=== PATIENT | male | born 1980 | race Caucasian/White ===

== ENCOUNTER 2018-01-05 19:30 | Emergency (ER) | payer MEDICAID ==
[2018-01-05 20:19] LABS: ABS Basophils 0 10^3/ul (0-0.2); ABS Eosinophils 0.2 10^3/ul (0-0.6); ABS Lymphocytes 2.4 10^3/ul (1.0-4.8); ABS Monocytes 0.6 10^3/ul (0-0.8); ABS Nucleated RBC 0 10^3/ul; Eosinophil % 2.4 % (0-6); Hematocrit 40 % (42-52); Hemoglobin 13.8 g/dl (14.0-18.0); Mean Corpuscular HGB Conc 34 g/dl (31-36); Mean Corpuscular Hemoglobin 32 pg (27-31); Mean Corpuscular Volume 93 fL (80-94); Mean Platelet Volume 7.4 um3 (7.4-10.4); Nucleated Red Blood Cells % 0; Platelet Count 308 10^3/ul (150-450); Red Blood Count 4.34 10^6/ul (4.00-5.40); Red Cell Distribution Width 15 % (10.5-15); White Blood Count 8.2 10^3/ul (3.5-10.8)
[2018-01-05 20:41] LABS: EGFR Non-African American 118.4 (>60)
--- NOTE | 2018-01-05 22:17 | ED ---
Syncope/Near Syncope - HPI Summary HPI Summary: This patient is a 37 year old male presenting to [facility] with a chief complaint of syncope since this morning. Patient states he noticed that he had been sleepwalking, which was unusual for him. Throughout the day, patient states that he kept feeling dizzy and tired, with eventual episodes of syncope. Patient states that he has midsternal chest pain that sore as if someone hit him. The pain is rated 4/10 in severity. Symptoms aggravated by nothing. Symptoms alleviated by nothing. Patient additionally reports nausea. Patient denies vomiting, headache. - History Of Current Complaint Chief Complaint: EDSyncope Hx Obtained From: Patient Onset/Duration: Lasting Hours, Still Present Timing: Constant Activity At Onset: At Rest Aggravating Factor(s): Nothing Alleviating Factor(s): Nothing Associated Signs And Symptoms: Negative - headache, vomiting, Chest Pain, Other - Nausea - Allergies/Home Medications Allergies/Adverse Reactions: Allergies Allergy/AdvReac Type Severity Reaction Status Date / Time No Known Allergies Allergy Verified 01/05/18 19:37 Home Medications: Home Medications BuPROPion XL* [Bupropion XL*] 300 mg PO DAILY 01/06/18 [History Confirmed ] Metformin HCl [Metformin HCl ER] 1,000 mg PO BID 01/06/18 [History Confirmed ] Ropinirole HCl 0.25 mg PO TID 01/06/18 [History Confirmed 01/06/18] PMH/Surg Hx/FS Hx/Imm Hx Previously Healthy: Yes Opthamlomology History: Denies: Hx Legally Blind EENT History: Denies: Hx Deafness Infectious Disease History: No Infectious Disease History: Denies: Traveled Outside the [place] in Last 30 Days - Family History Known Family History: Positive: Hypertension, Diabetes - Social History Occupation: Unemployed Lives: Alone Hx Tobacco Use: No Smoking Status (MU): Never Smoked Tobacco Review of Systems Negative: Fever Positive: Chest Pain Positive: Nausea. Negative: Vomiting Positive: Syncope. Negative: Headache All Other Systems Reviewed And Are Negative: Yes Physical Exam - Summary Physical Exam Summary: Appearance: Well-appearing, Well-nourished, lying in bed comfortably Skin: Warm, dry, no obvious rash Eyes: sclera anicteric, no conjunctival pallor ENT: mucous membranes moist, pharynx appears normal Neck: Supple, nontender Respiratory: Clear to auscultation, no signs of respiratory distress Cardiovascular: Normal S1, S2. No murmurs. Normal distal pulses in tibial and radial bilaterally. Abdomen: Soft, nontender, normal active bowel sounds present Musculoskeletal: Normal, Strength/ROM Intact Neurological: A&Ox3, awake and alert, mentation is normal, speech is fluent and appropriate Psychiatric: affect is normal, does not appear anxious or depressed Triage Information Reviewed: Yes Vital Signs On Initial Exam: Initial Vitals Temp Pulse Resp BP Pulse Ox 98.6 F 102 15 139/80 98 01/05/18 19:33 01/05/18 19:33 01/05/18 19:33 01/05/18 19:33 01/05/18 19:33 Vital Signs Reviewed: Yes Diagnostics - Vital Signs Vital Signs Temp Pulse Resp BP Pulse Ox 01/05/18 19:33 98.6 F 102 15 139/80 98 - Laboratory Lab Results: Lab Results 01/05/18 01/05/18 01/05/18 Range/Units 20:01 20:01 20:01 WBC 8.2 (3.5-10.8) 10^3/ul RBC 4.34 (4.00-5.40) 10^6/ul Hgb 13.8 L (14.0-18.0) g/dl Hct 40 L (42-52) % MCV 93 (80-94) fL MCH 32 H (27-31) pg MCHC 34 (31-36) g/dl RDW 15 (10.5-15) % Plt Count 308 (150-450) 10^3/ul MPV 7.4 (7.4-10.4) um3 Neut % (Auto) 61.1 (38-83) % Lymph % (Auto) 29.0 (25-47) % [place]ell % (Auto) 6.9 (0-7) % Eos % (Auto) 2.4 (0-6) % Baso % (Auto) 0.6 (0-2) % Absolute Neuts (auto) 5.0 (1.5-7.7) 10^3/ul Absolute Lymphs (auto) 2.4 (1.0-4.8) 10^3/ul Absolute Monos (auto) 0.6 (0-0.8) 10^3/ul Absolute Eos (auto) 0.2 (0-0.6) 10^3/ul Absolute Basos (auto) 0 (0-0.2) 10^3/ul Absolute Nucleated RBC 0 10^3/ul Nucleated RBC % 0 Sodium 140 (135-145) mmol/L Potassium 4.0 (3.5-5.0) mmol/L Chloride 108 (101-111) mmol/L Carbon Dioxide 29 (22-32) mmol/L Anion Gap 3 (2-11) mmol/L BUN 8 (6-24) mg/dL Creatinine 0.74 (0.67-1.17) mg/dL Est GFR ( Amer) 143.2 (>60) Est GFR (Non-Af Amer) 118.4 (>60) BUN/Creatinine Ratio 10.8 (8-20) Glucose 161 H (70-100) mg/dL Lactic Acid 1.7 (0.5-2.0) mmol/L Calcium 8.9 (8.6-10.3) mg/dL Total Bilirubin 0.40 (0.2-1.0) mg/dL AST 24 (13-39) U/L ALT 29 (7-52) U/L Alkaline Phosphatase 47 (34-104) U/L Troponin I 0.00 (<0.04) ng/mL Total Protein 6.3 L (6.4-8.9) g/dL Albumin 3.7 (3.2-5.2) g/dL Globulin 2.6 (2-4) g/dL Albumin/Globulin Ratio 1.4 (1-3) Result Diagrams: 01/05/18 20:01 01/05/18 20:01 Lab Statement: Any lab studies that have been ordered have been reviewed, and results considered in the medical decision making process. - Radiology CXR Xray Interpretation: No Acute Changes - CXR reveals IMPRESSION: No acute disease. ED physician has reviewed this XR. Radiology Interpretation Completed By: ED Physician Course/Dx Assessment/Plan: This patient is a 37 year old male presenting to [facility] with a chief complaint of syncope. An EKG, taken 1944, reveals NSR at 88 BPM, P waves, QRS complex, and T waves are within normal limits, T waves and intervals are normal, no ischemic changes. This is a normal EKG CXR reveals IMPRESSION: No acute disease. ED physician has reviewed this XR. Bloodwork Obtained. Urinalysis Obtained. Test results with no significant abnormalities. Patient will be discharge for syncope and advised to follow up with PCP if symptoms reoccur. The patient is agreeable with this plan. Discharge - Sign-Out/Discharge Documenting (check all that apply): Patient Departure - Discharge Plan Condition: Good Disposition: HOME Patient Education Materials: Syncope (ED) Referrals: [facility] [Outside] - Attestation Statements Document Initiated by Scribe: Yes Documenting Scribe: Mustapha De Jesus Provider For Whom Deborah is Documenting (Include Credential): Ruben Coronado Scraleja Attestation: Mustapha Taylor scribed for Ruben Coronado on 01/06/18 at 0535.
[2018-01-06 05:49] VITALS: BP 121/62
--- NOTE | 2018-01-06 14:57 | RAD ---
INDICATION: Syncope and chest pain COMPARISON: None. TECHNIQUE: Single AP view of the chest was obtained. FINDINGS: The heart and mediastinum exhibit normal size and contour. The lungs are grossly clear. There is no evidence of a large pleural effusion. Visualized bones are normal for the patient's age. IMPRESSION: No radiographic evidence for acute cardiopulmonary abnormality on this single AP view chest x-ray. R0
== END 2018-01-06 05:49 | disposition home or self-care (01) ==
LOC: ED 19:30
DX: R07.9 Chest pain, unspecified (principal); R11.0 Nausea; R55 Syncope and collapse
CPT/HCPCS: 36415; 71045; 80053; 80320; 83605; 84484; 85025; 93005; 99283; G0480

== ENCOUNTER 2018-01-26 14:26 | Emergency (ER) | payer MEDICAID, OTHER ==
[2018-01-26] MEDS ORDERED: NS 0.9% 1000 ML* 2,000 ML IV ONE (14:43)
[2018-01-26 15:24] LABS: ABS Basophils 0 10^3/ul (0-0.2); ABS Eosinophils 0 10^3/ul (0-0.6); ABS Lymphocytes 1.4 10^3/ul (1.0-4.8); ABS Monocytes 0.6 10^3/ul (0-0.8); ABS Neutrophils 8.8 10^3/ul (1.5-7.7); ABS Nucleated RBC 0 10^3/ul; Eosinophil % 0.2 % (0-6); Hematocrit 44 % (42-52); Hemoglobin 15.3 g/dl (14.0-18.0); Mean Corpuscular HGB Conc 35 g/dl (31-36); Mean Corpuscular Hemoglobin 32 pg (27-31); Mean Corpuscular Volume 93 fL (80-94); Mean Platelet Volume 7.7 um3 (7.4-10.4); Nucleated Red Blood Cells % 0; Platelet Count 303 10^3/ul (150-450); Red Blood Count 4.76 10^6/ul (4.00-5.40); Red Cell Distribution Width 15 % (10.5-15); White Blood Count 10.8 10^3/ul (3.5-10.8)
[2018-01-26 15:36] LABS: INR 0.92 (0.77-1.02)
[2018-01-26 15:42] LABS: EGFR Non-African American 166.7 (>60)
--- NOTE | 2018-01-26 16:17 | ED ---
Substance Abuse/Use - HPI Summary HPI Summary: Patient is a 37 y/o M BIBA w/ c/o substance abuse. He reports that he drank alcohol last night and snorted a substance with friends. He was told it was cocaine by them. Patient has Hx of heroin abuse, last usage was a month ago. Patient reports that today he began to experience upper abdominal pain which comes and goes. He endorse nausea and vomiting x 2. First emesis was green, second was a yellow liquid. No blood is reported to have been noticed in emesis. He claims fever, notes chronic chest pain and slight SOB. Patient also reports that at one point he passed out, fell down, and hit his head on a table. [facility], but as no physician was present, he was sent to ED. Patient is a diabetic and takes metformin. EMS reports BG of 123. Patient claims he has hep c and is trying to get treatment for it. PSHx of wisdom teeth removal, gallbladder surgery. He states he is prescribed various medications but is taking none of them. Patient smokes cigarettes. Pt states he is not suicidal or homicidal. FHx of CA is denied. On triage, pain is rated 6/10 , nothing is noted to aggravate/alleviate Sx. Home medications and allergies are reviewed. Allergies/Adverse Reactions: Allergies Allergy/AdvReac Type Severity Reaction Status Date / Time No Known Allergies Allergy Verified 01/05/18 19:37 - History Of Current Complaint Chief Complaint: EDSubstanceAbuse Stated Complaint: GENERAL ILLNESS Time Seen by Provider: 01/26/18 14:32 Hx Obtained From: Patient, EMS Onset/Duration of Drug/ETOH Abuse: Days - onset last night Ingestion History: Type/Name Of Drug - alcohol, reportedly cocaine Overdose Characteristics: Oral - alcohol, Inhalation - cocaine Timing Of Abuse: Intermittent Severity Initially: Moderate Severity Currently: Moderate - 6/10 on triage Character: Other - cooperative in the ED Aggravating Factor(s): Nothing Alleviating Factor(s): Nothing Associated Signs And Symptoms: Shortness Of Breath - slight, Chest Pain - chronic, Nausea, Vomiting, Other: - upper abdominal pain, syncope and associated head injury Related Hx: Drug/Alcohol Last Used @ - last pm, Possible Multi Drug Ingestion - Allergies/Home Medications Allergies/Adverse Reactions: Allergies Allergy/AdvReac Type Severity Reaction Status Date / Time No Known Allergies Allergy Verified 01/05/18 19:37 PMH/Surg Hx/FS Hx/Imm Hx Previously Healthy: No Endocrine/Hematology History: Reports: Hx Diabetes GI History: Reports: Other GI Disorders - hepatitis C Sensory History: Denies: Hx Legally Blind, Hx Deafness Opthamlomology History: Denies: Hx Legally Blind Psychiatric History: Reports: Hx Substance Abuse - Surgical History Surgery Procedure, Year, and Place: none Infectious Disease History: Yes Infectious Disease History: Reports: Hx Hepatitis - hep c Denies: Traveled Outside the [place] in Last 30 Days - Family History Known Family History: Positive: Hypertension, Diabetes, Other - NEGATIVE: CA - Social History Alcohol Use: Weekly Hx Substance Use: Yes Substance Use Type: Reports: Cocaine, Heroin Substance Use Comment - Amount & Last Used: Miri Hx Tobacco Use: No Smoking Status (MU): Heavy Every Day Tobacco Smoker Review of Systems Positive: Fever - fever claimed by patient, on triage vitals show 98.4 F Positive: Chest Pain - chronic, not currently Positive: Shortness Of Breath - slight Positive: Abdominal Pain - upper , Vomiting, Nausea Musculoskeletal: Negative Skin: Negative Neurological: Other - possible head injury after syncope days ago Positive: Syncope Psychological: Normal All Other Systems Reviewed And Are Negative: Yes Physical Exam - Summary Physical Exam Summary: Appearance: Well-appearing, no pain distress, well-nourished Skin: Warm, color reflects adequate perfusion, dry; track mcconnell at bilateral antecubital spaces, no redness, no mass or abscess Head: Normal Head/Face inspection, atraumatic Eyes: Conjunctiva clear; pupils are 3 mm, PERRL, EOMI ENT: Normal inspection, no hemotympanum, no Maxwell's signs Neck: Supple, no nodes, no JVD Respiratory: Lungs clear, normal breath sounds, no respiratory distress Cardio: RRR, No murmur, pulses normal, brisk capillary refill Abdomen: Soft, tenderness at LUQ, no masses, no guarding, no rebounding Bowel sounds: Present Musculoskeletal: Strength Intact/ROM intact, no calf tenderness, no edema. Psychological: Normal Neuro: Alert, muscle tone normal, no focal deficit, GCS 15 Triage Information Reviewed: Yes Vital Signs On Initial Exam: Initial Vitals Temp Pulse Resp BP Pulse Ox 98.4 F 88 18 124/83 98 01/26/18 14:43 01/26/18 14:43 10/12/18 14:43 01/26/18 14:43 01/26/18 14:43 Vital Signs Reviewed: Yes Diagnostics - Vital Signs Vital Signs Temp Pulse Resp BP Pulse Ox 01/26/18 15:00 15 01/26/18 14:48 83 24 94 01/26/18 14:43 98.4 F 88 18 124/83 98 - Laboratory Lab Results: Lab Results 01/26/18 01/26/18 01/26/18 Range/Units 15:06 15:06 15:06 WBC 10.8 (3.5-10.8) 10^3/ul RBC 4.76 (4.00-5.40) 10^6/ul Hgb 15.3 (14.0-18.0) g/dl Hct 44 (42-52) % MCV 93 (80-94) fL MCH 32 H (27-31) pg MCHC 35 (31-36) g/dl RDW 15 (10.5-15) % Plt Count 303 (150-450) 10^3/ul MPV 7.7 (7.4-10.4) um3 Neut % (Auto) 81.3 (38-83) % Lymph % (Auto) 13.0 L (25-47) % [place] % (Auto) 5.3 (0-7) % Eos % (Auto) 0.2 (0-6) % Baso % (Auto) 0.2 (0-2) % Absolute Neuts (auto) 8.8 H (1.5-7.7) 10^3/ul Absolute Lymphs (auto) 1.4 (1.0-4.8) 10^3/ul Absolute Monos (auto) 0.6 (0-0.8) 10^3/ul Absolute Eos (auto) 0 (0-0.6) 10^3/ul Absolute Basos (auto) 0 (0-0.2) 10^3/ul Absolute Nucleated RBC 0 10^3/ul Nucleated RBC % 0 INR (Anticoag Therapy) (0.77-1.02) Sodium 139 (135-145) mmol/L Potassium 4.5 (3.5-5.0) mmol/L Chloride 106 (101-111) mmol/L Carbon Dioxide 27 (22-32) mmol/L Anion Gap 6 (2-11) mmol/L BUN 10 (6-24) mg/dL Creatinine 0.55 L (0.67-1.17) mg/dL Est GFR ( Amer) 201.7 (>60) Est GFR (Non-Af Amer) 166.7 (>60) BUN/Creatinine Ratio 18.2 (8-20) Glucose 122 H (70-100) mg/dL Lactic Acid 1.1 (0.5-2.0) mmol/L Calcium 9.4 (8.6-10.3) mg/dL Magnesium 1.9 (1.9-2.7) mg/dL Total Bilirubin 0.70 (0.2-1.0) mg/dL AST 25 (13-39) U/L ALT 33 (7-52) U/L Alkaline Phosphatase 45 (34-104) U/L Ammonia (16-53) mcmol/L Total Creatine Kinase 204 (10-223) U/L Troponin I 0.01 (<0.04) ng/mL Total Protein 6.9 (6.4-8.9) g/dL Albumin 4.3 (3.2-5.2) g/dL Globulin 2.6 (2-4) g/dL Albumin/Globulin Ratio 1.7 (1-3) TSH 1.03 (0.34-5.60) mcIU/mL Salicylates < 2.50 (<30) mg/dL Acetaminophen < 15 mcg/mL Serum Alcohol < 10 (<10) mg/dL 01/26/18 01/26/18 Range/Units 15:06 15:06 WBC (3.5-10.8) 10^3/ul RBC (4.00-5.40) 10^6/ul Hgb (14.0-18.0) g/dl Hct (42-52) % MCV (80-94) fL MCH (27-31) pg MCHC (31-36) g/dl RDW (10.5-15) % Plt Count (150-450) 10^3/ul MPV (7.4-10.4) um3 Neut % (Auto) (38-83) % Lymph % (Auto) (25-47) % [place] % (Auto) (0-7) % Eos % (Auto) (0-6) % Baso % (Auto) (0-2) % Absolute Neuts (auto) (1.5-7.7) 10^3/ul Absolute Lymphs (auto) (1.0-4.8) 10^3/ul Absolute Monos (auto) (0-0.8) 10^3/ul Absolute Eos (auto) (0-0.6) 10^3/ul Absolute Basos (auto) (0-0.2) 10^3/ul Absolute Nucleated RBC 10^3/ul Nucleated RBC % INR (Anticoag Therapy) 0.92 (0.77-1.02) Sodium (135-145) mmol/L Potassium (3.5-5.0) mmol/L Chloride (101-111) mmol/L Carbon Dioxide (22-32) mmol/L Anion Gap (2-11) mmol/L BUN (6-24) mg/dL Creatinine (0.67-1.17) mg/dL Est GFR ( Amer) (>60) Est GFR (Non-Af Amer) (>60) BUN/Creatinine Ratio (8-20) Glucose (70-100) mg/dL Lactic Acid (0.5-2.0) mmol/L Calcium (8.6-10.3) mg/dL Magnesium (1.9-2.7) mg/dL Total Bilirubin (0.2-1.0) mg/dL AST (13-39) U/L ALT (7-52) U/L Alkaline Phosphatase (34-104) U/L Ammonia 48 (16-53) mcmol/L Total Creatine Kinase (10-223) U/L Troponin I (<0.04) ng/mL Total Protein (6.4-8.9) g/dL Albumin (3.2-5.2) g/dL Globulin (2-4) g/dL Albumin/Globulin Ratio (1-3) TSH (0.34-5.60) mcIU/mL Salicylates (<30) mg/dL Acetaminophen mcg/mL Serum Alcohol (<10) mg/dL Result Diagrams: 01/26/18 15:06 01/26/18 15:06 Lab Statement: Any lab studies that have been ordered have been reviewed, and results considered in the medical decision making process. - EKG 1515 Cardiac Rate: Bradycardia - rate of 56 BPM EKG Rhythm: Sinus Bradycardia ST Segment: Non-Specific Ectopy: None EKG Interpretation: nl AVIVCT, nml QTc, nml axis, small q waves in II, III, AVF EKG Comparison: No Significant Change - compared with 01/05/18 EKG Re-Evaluation - Re-Evaluation First Eval Re-Evaluation Time: 17:44 Change: Improved Comment: Patient reports no more abdominal pain, some nausea and vomited a small amount of bile. Given zofran. Second Eval Re-Evaluation Time: 19:11 Change: Improved Comment: Patient is retentive of sandwich, states he is ready to go, wants work note. Course/Dx - Course Course Of Treatment: Patient is a 37 y/o M BIBA w/ c/o substance abuse. He reports that he drank alcohol last night and snorted a substance with friends. He was told it was cocaine by them. Patient has Hx of heroin abuse, last usage was a month ago. Patient reports that today he began to experience upper abdominal pain which comes and goes. He endorse nausea and vomiting x 2. First emesis was green, second was a yellow liquid. No blood is reported to have been noticed in emesis. He claims fever, notes chronic chest pain and slight SOB. Patient also reports that at one point he passed out, fell down, and hit his head on a table. Patient is a diabetic and takes metformin. EMS reports BG of 123. On physical exam patient is noted to have moderate pain distress, track mcconnell at bilateral antecubital spaces; pupils are 3 mm, PERRL, EOMI; tenderness at LUQ tenderness, no masses, no guarding, no rebounding; GCS 15. During ED course, patient was given 8 mg Zofran PO ONCE. Toxicology showed presumptive positive of urine cocaine screen, urine cannabinoids, and urine opiates. UA showed yellow turbid urine with urine ketones 1+ and ascorbic acid as present. Labs showed < 10 lipase, 23 amylase, lactic 1.1, glucose 122, WBC 10.8. EKG showed sinus bradycardia with rate of 56 BPM, nl AVIVCT, nml QTc, nml axis, non specific ST, no ectopy, small q waves in II, III, AVF, and no acute changes when compared with EKG from 01/05/18. 1744 - Patient reports no more abdominal pain, some nausea and vomited a small amount of bile. At 1911, patient states he is ready to be discharged. Dx of upper abdominal pain, dehydration, and substance abuse. - Diagnoses Differential Diagnosis/HQI/PQRI: Positive: Alcohol Abuse, Alcohol Withdrawal, Bipolar Disorder, Drug Abuse, Drug Withdrawal, Metabolic Disorder Provider Diagnoses: Dehydration, Substance abuse, Upper abdominal pain Discharge - Sign-Out/Discharge Documenting (check all that apply): Patient Departure - discharge - Discharge Plan Condition: Stable Disposition: HOME Patient Education Materials: Polysubstance Abuse (ED) Referrals: [facility] [Outside] - 1 Day [facility] [Outside] - As Soon As Possible Additional Instructions: You were given zofran for nausea while you were in the ER. There were not any significant abnormalities in your labs other than your toxicology screen. Return to the ER if you have any new or worsening symptoms. - Billing Disposition and Condition Condition: STABLE Disposition: Home - Attestation Statements Document Initiated by Deborah: Yes Documenting Scribe: Uriel Beverly Provider For Whom Deborah is Documenting (Include Credential): Saba Herman MD Scribe Attestation: Uriel Taylor scribed for Saba Herman MD on 01/29/18 at 2142. Scribe Documentation Reviewed: Yes Provider Attestation: The documentation as recorded by the Uriel quinn accurately reflects the service I personally performed and the decisions made by me, Saba Herman MD
[2018-01-26] MEDS ORDERED: Ondansetron ODT TAB* 4 MG PO ONE (17:45)
[2018-01-26 18:03] LABS: Urine Appearance Turbid; Urine Blood Negative (Negative); Urine Color Yellow; Urine Ketones 1+ (Negative); Urine Protein Negative (Negative); Urine Urobilinogen Negative (Negative)
[2018-01-26 18:45] VITALS: BP 109/74
== END 2018-01-26 19:50 | disposition home or self-care (01) ==
LOC: ED 14:26
DX: E86.0 Dehydration (principal); F19.10 Other psychoactive substance abuse, uncomplicated; R10.10 Upper abdominal pain, unspecified; Z72.0 Tobacco use
CPT/HCPCS: 36415; 80053; 80307; 80320; 80329; 81003; 82140; 82150; 82550; 83605; 83690; 83735; 84443; 84484; 85025; 85610; 93005; 96360; 99282; A9270-GY; G0480

== ENCOUNTER 2018-02-12 20:26 | Emergency (ER) | payer OTHER ==
[2018-02-12] MEDS ORDERED: LORazepam TAB(*) 1 MG PO PRN (20:44)
[2018-02-12] MEDS ORDERED: Haloperidol INJ IV/IM* 5 MG/ML AMP ONE (20:54)
[2018-02-12] MEDS ORDERED: LORazepam INJ* 2 MG/ML 1 ML VIAL ONE (20:54)
[2018-02-12] MEDS ORDERED: LORazepam INJ* 2 MG/ML 1 ML VIAL IM ONE (20:55)
[2018-02-12] MEDS ORDERED: Haloperidol INJ IV/IM* 5 MG/ML AMP IM ONE (20:55)
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
[2018-02-12 22:37] LABS: ABS Basophils 0 10^3/ul (0-0.2); ABS Eosinophils 0 10^3/ul (0-0.6); ABS Lymphocytes 1.7 10^3/ul (1.0-4.8); ABS Monocytes 0.4 10^3/ul (0-0.8); ABS Neutrophils 7.5 10^3/ul (1.5-7.7); ABS Nucleated RBC 0 10^3/ul; Eosinophil % 0.2 % (0-6); Hematocrit 46 % (42-52); Hemoglobin 15.8 g/dl (14.0-18.0); Lymphocyte % 17.7 % (25-47); Mean Corpuscular HGB Conc 35 g/dl (31-36); Mean Corpuscular Hemoglobin 33 pg (27-31); Mean Corpuscular Volume 94 fL (80-94); Mean Platelet Volume 7.7 um3 (7.4-10.4); Nucleated Red Blood Cells % 0; Platelet Count 276 10^3/ul (150-450); Red Blood Count 4.85 10^6/ul (4.00-5.40); Red Cell Distribution Width 16 % (10.5-15); White Blood Count 9.7 10^3/ul (3.5-10.8)
[2018-02-12 22:48] LABS: EGFR Non-African American 147.9 (>60)
--- NOTE | 2018-02-13 08:11 | ED ---
Progress - Progress Note Progress Note: Receiving sign out from Dr. Miranda, pending XR. Forearm XR: NO ACUTE OSSEOUS INJURY. IF SYMPTOMS PERSIST, RECOMMEND REPEAT IMAGING. Elbow XR: NO ACUTE OSSEOUS INJURY. IF SYMPTOMS PERSIST, RECOMMEND REPEAT IMAGING. Pt is discharged home. Course/Dx - Course Course Of Treatment: Appearance: Well appearing, no pain distress. Skin: warm, dry, reflects adequate perfusion. Head/face: normal. Eyes: EOMI, MURPHY, conjunctivitis L eye. ENT: mucous membranes moist. Neck: supple, non-tender. Respiratory: CTA, breath sounds present. Cardiovascular: RRR, pulses symmetrical. Abdomen: non-tender, soft. Bowel Sounds: present. Musculoskeletal: normal, strength/ROM intact. Neuro: normal, sensory motor intact, A&Ox3, able to raise arm. Pt will be discharged home. Final dx are alcohol intoxication, nasal fracture, multiple contusions, and conjunctivitis. Patient has returned to normal mental status and demonstrates clear speech, steady gait and normal mentation. His right upper extremity shows full range of motion without significant discomfort. - Diagnoses Provider Diagnoses: Conjunctivitis, Nasal fracture, Alcohol intoxication, Multiple contusions Discharge - Sign-Out/Discharge Documenting (check all that apply): Patient Departure - Discharge, Receiving Sign-Out Receiving patient FROM: Leonel Miranda - Discharge Plan Condition: Stable Disposition: HOME Prescriptions: Erythromycin OPTH OINT* [Erythromycin 0.5% OPTH OINT*] 1 applic LEFT EYE TID 5 Days #1 ophth.oint Patient Education Materials: Nasal Fracture (ED), Alcohol Intoxication (ED), Abuse of Alcohol (ED), Conjunctivitis (ED) Referrals: Care [facility] [Outside] - If Needed Additional Instructions: Never drink alcohol to excess. Ice sore areas. Tylenol for discomfort. Ointment for your eye is in the pharmacy. Return if worse, new symptoms or other concerns. Seek help for your drinking problem. Handout is provided. - Billing Disposition and Condition Condition: STABLE Disposition: Home - Attestation Statements Document Initiated by Scribe: Yes Documenting Scribe: Ingrid Espinoza Provider For Whom Scribe is Documenting (Include Credential): Jacques Leblanc MD Scribe Attestation: Ingrid Taylor, scribed for Jacques Leblanc MD on 02/13/18 at 1125. Scribe Documentation Reviewed: Yes Provider Attestation: The documentation as recorded by the scribe, Ingrid Espinoza accurately reflects the service I personally performed and the decisions made by me, Jacques Leblanc MD
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
[2018-02-13 09:01] VITALS: BP 100/62
== END 2018-02-13 09:00 | disposition home or self-care (01) ==
LOC: ED 20:26
DX: S02.2XXA Fracture of nasal bones, initial encounter for closed fracture (principal); S00.83XA Contusion of other part of head, initial encounter; H10.9 Unspecified conjunctivitis; X58.XXXA Exposure to other specified factors, initial encounter; Y92.9 Unspecified place or not applicable; F10.129 Alcohol abuse with intoxication, unspecified; F17.210 Nicotine dependence, cigarettes, uncomplicated
CPT/HCPCS: 36415; 70450; 70486; 72125; 80053; 80320; 85025; 96372; 96374; 96375; 99285; G0480; J1630; J2060

== ENCOUNTER 2018-07-05 23:52 | Observation (INO) | payer OTHER ==
[2018-07-06] MEDS ORDERED: Nicotine Inhaler* 10 MG AMP INH PRN (00:27)
[2018-07-06] MEDS ORDERED: LORazepam INJ* 2 MG/ML 1 ML VIAL IM ONE (00:27)
[2018-07-06] MEDS ORDERED: diPHENhydraMINE IV* 50 MG/ML 1 ml VIAL (BENADRYL) IM ONE (00:27)
[2018-07-06] MEDS ORDERED: Haloperidol INJ IV/IM* 5 MG/ML AMP IM ONE (00:27)
[2018-07-06] MEDS ORDERED: LORazepam INJ* 2 MG/ML 1 ML VIAL ONE ×2 (00:27→00:30)
[2018-07-06] MEDS ORDERED: Haloperidol INJ IV/IM* 5 MG/ML AMP ONE (00:30)
[2018-07-06] MEDS ORDERED: diPHENhydraMINE IV* 50 MG/ML 1 ml VIAL (BENADRYL) ONE (00:30)
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
[2018-07-06] MEDS ORDERED: NS 0.9% 1000 ML** 1,000 ML IV ONE ×2 (00:40→04:48)
[2018-07-06 01:28] LABS: ABS Basophils 0 10^3/ul (0-0.2); ABS Eosinophils 0 10^3/ul (0-0.6); ABS Lymphocytes 1.7 10^3/ul (1.0-4.8); ABS Monocytes 1.2 10^3/ul (0-0.8); ABS Neutrophils 13.3 10^3/ul (1.5-7.7); ABS Nucleated RBC 0 10^3/ul; Eosinophil % 0 %; Hematocrit 44 % (36-46); Lymphocyte % 10.7 %; Mean Corpuscular HGB Conc 34 g/dL (31-36); Mean Corpuscular Hemoglobin 31 pg (27-31); Mean Corpuscular Volume 92 fL (80-94); Mean Platelet Volume 8.1 fL (7.4-10.4); Nucleated Red Blood Cells % 0; Platelet Count 336 10^3/uL (150-450); Red Blood Count 4.79 10^6 /uL (4.18-5.48); Red Cell Distribution Width 15 % (10.5-15); White Blood Count 16.2 10^3/uL (3.5-10.8)
[2018-07-06 01:45] LABS: ALT 55 U/L (7-52); AST 61 U/L (13-39); Albumin 4.6 g/dL (3.2-5.2); Albumin/Globulin Ratio 1.6 (1-3); Alkaline Phosphatase 58 U/L (34-104); Anion Gap 13 mmol/L (2-11); BUN/Creatinine Ratio 17.4 (8-20); Blood Urea Nitrogen 15 mg/dL (6-24); CO2 Carbon Dioxide 24 mmol/L (22-32); Calcium 9.6 mg/dL (8.6-10.3); Chloride 101 mmol/L (101-111); Creatine Kinase 1537 U/L (10-223); EGFR African American 119.8 (>60); Globulin 2.9 g/dL (2-4); Glucose 98 mg/dL (70-100); Potassium 3.7 mmol/L (3.5-5.0); Sodium 138 mmol/L (135-145); Total Protein 7.5 g/dL (6.4-8.9)
[2018-07-06 02:03] LABS: Acetaminophen < 15 mcg/mL; Alcohol < 10 mg/dL (<10); Salicylate < 2.50 mg/dL (<30)
[2018-07-06] MEDS ORDERED: NS 0.9% 1000 ML** 2,000 ML IV ONE (02:05)
[2018-07-06 02:18] LABS: TSH (Thyroid Stimulating Horm) 1.01 mcIU/mL (0.34-5.60)
[2018-07-06] MEDS ORDERED: LORazepam INJ* 2 MG/ML 1 ML VIAL IV PUSH ONE (02:22)
[2018-07-06 05:14] LABS: Albumin 3.7 g/dL (3.2-5.2); Albumin/Globulin Ratio 1.6 (1-3); BUN/Creatinine Ratio 17.1 (8-20); Calcium 8.1 mg/dL (8.6-10.3); EGFR African American 151.9 (>60); EGFR Non-African American 125.5 (>60); Globulin 2.3 g/dL (2-4); Potassium 3.6 mmol/L (3.5-5.0); Total Bilirubin 0.6 mg/dL (0.2-1.0)
[2018-07-06] MEDS ORDERED: Dextrose 50% Syringe 50 ML* 25 GM/50 ML SYRINGE IV PUSH ONE (05:41)
[2018-07-06] MEDS ORDERED: Dextrose 50% Syringe 50 ML* 25 GM/50 ML SYRINGE ONE (05:42)
[2018-07-06] MEDS ORDERED: NS 0.9% 1000 ML** 1,000 ML IV SCH (05:45)
[2018-07-06] MEDS ORDERED: Ondansetron INJ* 2 MG/ML VIAL IV PRN (05:53)
[2018-07-06] MEDS ORDERED: LORazepam INJ* 2 MG/ML 1 ML VIAL IV PUSH PRN (06:00)
[2018-07-06 06:27] LABS: Urine Appearance Cloudy; Urine Bacteria Absent (Absent); Urine Bilirubin Negative (Negative); Urine Blood Negative (Negative); Urine Color Amber; Urine Glucose Negative (Negative); Urine Ketones 2+ (Negative); Urine Nitrite Negative (Negative); Urine Protein 1+(30 mg/dL) (Negative); Urine Red Blood Cell 1+(3-5/hpf) (Absent); Urine Specific Gravity 1.035 (1.010-1.030); Urine Urobilinogen Positive (Negative); Urine White Blood Cell Trace(0-5/hpf) (Absent); Urine White Blood Cell Casts Present (Absent)
[2018-07-06 07:01] LABS: Barbiturates Urine Screen None Detected (None Detect); Benzodiazepine Urine Screen None Detected (None Detect); Urine Cannabinoids Screen None Detected (None Detect)
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
[2018-07-06] MEDS: Heparin VIAL(*) 5000 UNITS/ML VIAL (FIVE THOUSAND) SUBCUT SCH ×3 (07:31→21:43)
[2018-07-06] MEDS: NS 0.9% 1000 ML** 1,000 ML IV SCH ×2 (14:16→21:30)
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
[2018-07-06 15:39] LABS: Calcium 8.3 mg/dL (8.6-10.3); Potassium 3.7 mmol/L (3.5-5.0)
[2018-07-06 15:44] LABS: BUN/Creatinine Ratio 15.9 (8-20); EGFR African American 171.6 (>60); EGFR Non-African American 141.8 (>60)
[2018-07-06 16:30] LABS: ABS Basophils 0 10^3/ul (0-0.2); ABS Eosinophils 0.1 10^3/ul (0-0.6); ABS Lymphocytes 2.1 10^3/ul (1.0-4.8); ABS Monocytes 0.9 10^3/ul (0-0.8); ABS Neutrophils 5.7 10^3/ul (1.5-7.7); ABS Nucleated RBC 0 10^3/ul; Eosinophil % 0.9 %; Hematocrit 38 % (36-46); Hemoglobin 13.4 g/dL (14.0-18.0); Lymphocyte % 24.2 %; Mean Corpuscular HGB Conc 35 g/dL (31-36); Mean Corpuscular Hemoglobin 32 pg (27-31); Mean Corpuscular Volume 93 fL (80-94); Mean Platelet Volume 7.9 fL (7.4-10.4); Nucleated Red Blood Cells % 0.2; Platelet Count 267 10^3/uL (150-450); Red Blood Count 4.12 10^6 /uL (4.18-5.48); Red Cell Distribution Width 15 % (10.5-15); White Blood Count 8.8 10^3/uL (3.5-10.8)
[2018-07-07] MEDS: NS 0.9% 1000 ML** 1,000 ML IV SCH (03:45)
[2018-07-07] MEDS: Heparin VIAL(*) 5000 UNITS/ML VIAL (FIVE THOUSAND) SUBCUT SCH ×3 (06:17→21:36)
[2018-07-07 08:21] LABS: BUN/Creatinine Ratio 8.6 (8-20); Calcium 7.9 mg/dL (8.6-10.3); EGFR African American 188.7 (>60); Potassium 3.5 mmol/L (3.5-5.0)
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
[2018-07-08] MEDS: Heparin VIAL(*) 5000 UNITS/ML VIAL (FIVE THOUSAND) SUBCUT SCH (05:14)
[2018-07-08 10:20] VITALS: BP 149/84
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
== END 2018-07-08 12:00 | disposition home or self-care (01) ==
LOC: ED 23:52 → MEDTELE 07-06 05:53
PROVIDERS: ADMIT Pediatrics; ATTEND Internal Medicine
DX: T79.6XXA Traumatic ischemia of muscle, initial encounter (principal); V49.9XXA Car occupant (driver) (passenger) injured in unspecified traffic accident, initial encounter; E11.9 Type 2 diabetes mellitus without complications; F17.210 Nicotine dependence, cigarettes, uncomplicated; T43.691A Poisoning by other psychostimulants, accidental (unintentional), initial encounter; F19.10 Other psychoactive substance abuse, uncomplicated; R45.1 Restlessness and agitation; R45.851 Suicidal ideations
CPT/HCPCS: 36415; 70450; 80048; 80053; 80307; 80320; 80329; 81003; 81015; 82550; 84443; 85025; 87086; 93005; 96361; 96372; 96374; 96375; 99285; G0378; G0480; J1200; J1630; J1644; J2060